=== PATIENT | female | born 1935 | race Caucasian/White ===

== ENCOUNTER 2020-08-01 14:10 | Emergency (ER) | payer MEDICAID, OTHER ==
[~2020-08-01] VITALS: Ht 152.4 cm; Wt 50.0 kg
[~2020-08-01 14:10] MED LIST: ASPI-1497 PO; BENA20TA10 PO; HYDR25TA PO
[2020-08-01 15:52] LABS: BASOPHILS % 0.3 % (0.0-2.0); EOSINOPHILS % 0.2 % (0.0-5.0); HEMATOCRIT. 33.1 % (36.0-48.0); MEAN CORPUSCULAR HEMOGLOBIN 32.7 pg (28.0-32.0); MEAN CORPUSCULAR VOLUME 98.3 fL (81.0-99.0); MEAN PLATELET VOLUME 8.5 fl (7.4-10.4); MONOCYTES % 6.8 % (2.0-8.0); NEUTROPHILS % 80.7 % (40.0-76.0); PLATELET 151 x1000/uL (130-400); RED BLOOD CELL COUNT 3.37 mill/uL (4.2-5.4); RED CELL DISTRIBUTION WIDTH 16.9 % (11.6-14.6)
[2020-08-01 16:01] LABS: INR 1.4; PARTIAL THROMBOPLASTIN TIME 52.4 sec (23.4-31.0); PROTHROMBIN TIME 14.3 sec (9.6-11.0)
[2020-08-02 00:30] VITALS: BP 97/50
== END 2020-08-02 00:42 | disposition short-term general hospital (02) ==
LOC: ER 14:10
DX: K74.60 Unspecified cirrhosis of liver (principal); I10 Essential (primary) hypertension; Z79.82 Long term (current) use of aspirin
CPT/HCPCS: 36415; 71045; 76700; 80048; 80076; 83880; 85025; 93005; 99285